=== PATIENT | male | born 1980 | race Caucasian/White ===

== ENCOUNTER → 2020-07-27 | Outpatient (CLI) | payer OTHER | END | disposition home or self-care (01) | LOC: STAR 09:58 | PROVIDERS: ATTEND Surgery | DX: Z20.822 Contact with and (suspected) exposure to COVID-19 (principal); K40.20 Bilateral inguinal hernia, without obstruction or gangrene, not specified as recurrent | CPT/HCPCS: U0003 ==

== ENCOUNTER 2020-07-31 08:02 | Day surgery (SDC) | payer OTHER ==
[~2020-07-31] VITALS: Ht 193 cm; Wt 136.9 kg
[2020-07-31] MEDS ORDERED: NO HOME MEDS PER PT (08:28)
[2020-07-31 08:30] VITALS: BP 142/87
[2020-07-31] MEDS ORDERED: LACTATED RINGERS 1,000 ML IV SCH (08:30)
[2020-07-31] MEDS ORDERED: CHLORHEXIDINE 15 ML UDC PO ONE (08:30)
[2020-07-31] MEDS ORDERED: CHLORHEXIDINE 15 ML UDC ONE (08:32)
[2020-07-31] MEDS ORDERED: BUPIVACAINE/PF 0.5% ONE (09:01)
[2020-07-31] MEDS ORDERED: EPINEPHRINE 1 MG/ML, 1ML ONE (09:01)
[2020-07-31] MEDS ORDERED: MIDAZOLAM 1 MG/ML, 5ML ONE (10:01)
[2020-07-31] MEDS ORDERED: FENTANYL PF 250 MCG/5ML ONE (10:01)
[2020-07-31] MEDS ORDERED: PROPOFOL 10 MG/ML, 20ML ONE (10:14)
[2020-07-31] MEDS ORDERED: ROCURONIUM 10MG/ML,5ML ONE (10:15)
[2020-07-31] MEDS ORDERED: CEFAZOLIN 1,000 MG ONE ×2 (10:15)
[2020-07-31] MEDS ORDERED: ONDANSETRON 2MG/ML, 2ML ONE ×2 (10:15→10:33)
[2020-07-31] MEDS ORDERED: DEXAMETHASONE 4 MG/ML, 1ML ONE ×2 (10:15)
[2020-07-31] MEDS ORDERED: HYDROmorphone 1 MG/ML, 1ML INJ IVPush PRN (10:30)
[2020-07-31] MEDS ORDERED: MEPERIDINE/PF 25MG/0.5ML IVPush PRN (10:30)
[2020-07-31] MEDS ORDERED: ONDANSETRON 2MG/ML, 2ML IVPush PRN (10:30)
[2020-07-31] MEDS ORDERED: hydrALAzine 20 MG/ML, 1ML IV PRN (10:30)
[2020-07-31] MEDS ORDERED: PROMETHAZINE 25 MG/ML, 1ML IVPush PRN (10:30)
[2020-07-31] MEDS ORDERED: LABETALOL 5MG/ML, 20ML IV PRN (10:30)
[2020-07-31] MEDS ORDERED: ACETAMINOPHEN 325 MG TABLET PO PRN (10:30)
[2020-07-31] MEDS ORDERED: KETOROLAC 30 MG/1 ML ONE (11:16)
[2020-07-31] MEDS ORDERED: OXYcodone 5 MG/5 ML ORAL.SOL UDC ONE (11:36)
[2020-07-31] MEDS ORDERED: FENTANYL PF 100 MCG/2ML ONE (11:36)
[2020-07-31] MEDS ORDERED: ACETAMINOPHEN 650 MG/20.3 ML UDC ONE (11:36)
[2020-07-31] MEDS: FENTANYL PF 100 MCG/2ML IV PRN ×2 (11:40→12:02)
[2020-07-31] MEDS: OXYcodone 5 MG/5 ML ORAL.SOL UDC PO PRN ×2 (11:52→13:25)
== END 2020-07-31 14:40 | disposition home or self-care (01) ==
LOC: OUT 08:02
PROVIDERS: ATTEND Surgery
DX: K40.20 Bilateral inguinal hernia, without obstruction or gangrene, not specified as recurrent (principal)
CPT/HCPCS: 49650; C1781; J0171; J0690; J1100; J1885; J2250; J2405; J2704; J3010; J7120; S2900